=== PATIENT | female | born 1940 | race Two or more races ===

== ENCOUNTER 2023-01-23 13:37 | Inpatient (IN) | payer OTHER ==
[~2023-01-23] VITALS: Ht 162.6 cm; Wt 80.3 kg
[2023-01-23] MEDS ORDERED: SODIUM CHLORIDE 0.9% 1,000 ML IV ONE ×2 (14:30→19:00)
[2023-01-23] MEDS ORDERED: ONDANSETRON ODT 4 MG TAB PO ONE (14:30)
[2023-01-23] MEDS ORDERED: MAALOX PLUS or MAALOX 30 ML PO ONE (14:30)
[2023-01-23] MEDS ORDERED: MECLIZINE HCL 25 MG TAB PO ONE (14:30)
[2023-01-23 14:40] VITALS: PULSE 65; RESP 16; O2SAT 99
[2023-01-23 15:09] LABS: Basophils # (auto) 0.1 10 ^3/uL (0-0.2); Basophils % (auto) 0.4 % (0.0-2.0); Eosinophils # (auto) 0.1 10 ^3/uL (0-0.8); Eosinophils % (auto) 0.5 % (0.0-7.0); Hematocrit 40.5 % (36.0-46.0); Hemoglobin 13.7 g/dL (12.2-16.2); Lymphocytes # (auto) 1.2 10 ^3/uL (0.4-5.4); Lymphocytes % (auto) 7.7 % (10.0-50.0); Mean Corpuscular Hemoglobin 29.2 pg (28.0-32.0); Mean Corpuscular Hgb Conc. 33.9 g/dL (32.0-36.0); Mean Corpuscular Volume 86.3 fL (80.0-100.0); Monocytes # (auto) 0.8 10 ^3/uL (0-1.3); Monocytes % (auto) 4.9 % (0.0-12.0); Neutrophils # (auto) 13.7 10 ^3/uL (1.6-8.6); Neutrophils % (auto) 86.5 % (37.0-80.0); Red Blood Cells 4.69 10^6/uL (4.0-5.20); Red Cell Distribution Width 12.8 % (11.8-14.3); White Blood Cell 15.8 10^3/uL (4.4-10.8)
[2023-01-23 15:17] LABS: Albumin 3.5 g/dL (3.4-5.0); Potassium 3.5 mmol/L (3.5-5.1)
[2023-01-23 15:19] LABS: Bilirubin, Total 0.4 mg/dL (0.2-1.0); Total Protein 6.9 g/dL (6.4-8.2)
[2023-01-23] MEDS ORDERED: LIDOCAINE VISCOUS 2% 15ML UD PO ONE (15:45)
[2023-01-23] MEDS ORDERED: METOCLOPRAMIDE HCL 5MG/ml INJ 2ml VIAL IV ONE (15:45)
[2023-01-23] MEDS ORDERED: DONNATAL 5ml ORAL Elix (BELLADONNA ALK-PHENOBARB) PO ONE (15:45)
[2023-01-23 20:20] VITALS: PULSE 54; RESP 15; O2SAT 97
[2023-01-23 21:35] LABS: Urine Bacteria NONE SEEN /hpf (None Seen); Urine Blood Negative /uL (Negative); Urine Clarity Clear (Clear); Urine Color Yellow (Yellow); Urine Hyaline Cast FEW /lpf (0 - 2); Urine Mucus FEW (None Seen); Urine Protein, UAD TRACE (Negative); Urine Specific Gravity 1.016 (1.001-1.035); Urine Urobilinogen Normal (Negative); Urine WBC 2 /hpf (0 - 5)
[2023-01-23] MEDS ORDERED: MECLIZINE HCL 25 MG TAB PO PRN (21:45)
[2023-01-23] MEDS ORDERED: ONDANSETRON HCL 4 MG/2 ML VIAL IV PRN (21:45)
[2023-01-23] MEDS ORDERED: cefTRIAXone 1GM/50ML D5W 50 ML IV ONE (21:45)
[2023-01-23] MEDS ORDERED: ACETAMINOPHEN 325 MG TAB PO PRN (21:45)
[2023-01-23 21:51] LABS: Alcohol, Urine < 3.0 mg/dL (0-10); Amphetamine Screen, Urine NEGATIVE (NEGATIVE); Barbiturate Scree,Urine NEGATIVE (NEGATIVE); Benzodiazephine Screen, Urine NEGATIVE (NEGATIVE); Cannabinoid Screen, Urine NEGATIVE (NEGATIVE); Cocaine Screen, Urine NEGATIVE (NEGATIVE); Opiate Scree,Urine NEGATIVE (NEGATIVE); Phencyclidine Screen, Urine NEGATIVE (NEGATIVE)
[2023-01-23] MEDS: SODIUM CHLORIDE 0.9% 1,000 ML IV SCH (22:01)
[2023-01-23] MEDS ORDERED: MORPHINE SULFATE INJ 2 MG/ml SYRG IV PRN (23:45)
[2023-01-23] MEDS ORDERED: NITROGLYCERIN 0.4 MG SL TAB SL PRN (23:45)
[2023-01-24] VITALS (7 sets, daily range): BP systolic 127–158; BP diastolic 50–75; PULSE 57–87; RESP 14–18; TEMP 97.4–98.7; O2SAT 93–98
[2023-01-24 02:04] LABS: Basophils # (auto) 0 10 ^3/uL (0-0.2); Basophils % (auto) 0.2 % (0.0-2.0); Eosinophils # (auto) 0 10 ^3/uL (0-0.8); Eosinophils % (auto) 0.1 % (0.0-7.0); Hematocrit 37.3 % (36.0-46.0); Hemoglobin 12.5 g/dL (12.2-16.2); Lymphocytes # (auto) 1.1 10 ^3/uL (0.4-5.4); Lymphocytes % (auto) 9.7 % (10.0-50.0); Mean Corpuscular Hemoglobin 29.3 pg (28.0-32.0); Mean Corpuscular Hgb Conc. 33.5 g/dL (32.0-36.0); Mean Corpuscular Volume 87.6 fL (80.0-100.0); Monocytes # (auto) 0.6 10 ^3/uL (0-1.3); Monocytes % (auto) 4.8 % (0.0-12.0); Neutrophils # (auto) 9.9 10 ^3/uL (1.6-8.6); Neutrophils % (auto) 85.2 % (37.0-80.0); Red Blood Cells 4.25 10^6/uL (4.0-5.20); Red Cell Distribution Width 12.7 % (11.8-14.3); White Blood Cell 11.7 10^3/uL (4.4-10.8)
[2023-01-24 02:05] LABS: Urine Bacteria MOD /hpf (None Seen); Urine Blood 3+ /uL (Negative); Urine Clarity HAZY (Clear); Urine Color PINK (Yellow); Urine Mucus FEW (None Seen); Urine Protein, UAD 2+ (Negative); Urine Urobilinogen Normal (Negative); Urine WBC 411 /hpf (0 - 5); Urine pH 6.5 (5.0-8.0)
[2023-01-24 03:54] LABS: Albumin 3.1 g/dL (3.4-5.0); Calcium 8.1 mg/dL (8.5-10.1); Potassium 3.6 mmol/L (3.5-5.1)
[2023-01-24 03:57] LABS: BUN/Creatinine Ratio 14.5 (10.0-20.0); Bilirubin, Total 0.3 mg/dL (0.2-1.0); Total Protein 6.2 g/dL (6.4-8.2)
[2023-01-24] MEDS: HYDROcodone-ACET 5/325MG TAB PO PRN ×4 (04:43→20:51)
[2023-01-24] MEDS: LEVOTHYROXINE SODIUM 25 MCG TAB PO SCH (06:39)
[2023-01-24] MEDS ORDERED: ASPirin 81 mg TAB PO SCH (10:00)
[2023-01-24] MEDS ORDERED: FAMOTIDINE (10MG/ML) 2ML VL IV SCH (10:00)
[2023-01-24] MEDS ORDERED: POTA10TA51 PO (16:13)
[2023-01-24] MEDS ORDERED: ASPI-543 PO (16:13)
[2023-01-24] MEDS ORDERED: LEVO50TA7 PO (16:13)
[2023-01-24] MEDS ORDERED: OMEP20TA PO (16:13)
[2023-01-24] MEDS ORDERED: AMLO1TAB22 PO (16:13)
[2023-01-24] MEDS ORDERED: LISI40TA16 PO (16:13)
[2023-01-24 17:31] LABS: Cholesterol 202 mg/dL (< 200)
[2023-01-24 17:35] LABS: HDL Cholesterol 67 mg/dL (40-59); LDL Cholesterol 118 mg/dL (< 100); Triglycerides 82 mg/dL (< 150)
[2023-01-24] MEDS: SODIUM CHLORIDE 0.9% 1,000 ML IV SCH (18:03)
[2023-01-24] MEDS: cefTRIAXone 1GM/50ML D5W 50 ML IV SCH (21:15)
[2023-01-24] MEDS: PANTOPRAZOLE 40 MG/10 ML VIAL INJ IV SCH (21:15)
[2023-01-24] MEDS ORDERED: ONDANSETRON HCL 4 MG/2 ML VIAL IV PRN (23:15)
[2023-01-25] VITALS (8 sets, daily range): BP systolic 128–162; BP diastolic 42–63; PULSE 56–68; RESP 16–18; TEMP 97.6–98.6; O2SAT 94–99
[2023-01-25] MEDS: HYDROcodone-ACET 5/325MG TAB PO PRN ×2 (01:48→18:12)
[2023-01-25] MEDS: SODIUM CHLORIDE 0.9% 1,000 ML IV SCH ×2 (04:11→21:04)
[2023-01-25] MEDS: SUCRALFATE 1 GM/10 ML ORAL SUSP PO SCH ×4 (06:15→21:04)
[2023-01-25] MEDS: LEVOTHYROXINE SODIUM 25 MCG TAB PO SCH (06:16)
[2023-01-25 10:05] LABS: Hepatitis B Surface Antibody Negative (Negative)
[2023-01-25 10:29] LABS: Hepatitis A Total Antibody Positive (Negative)
[2023-01-25] MEDS: PANTOPRAZOLE 40 MG/10 ML VIAL INJ IV SCH ×2 (10:54→21:04)
[2023-01-25] MEDS: LIDOCAINE 5% TOPICAL PATCH TOP SCH (10:54)
[2023-01-25 13:16] LABS: Hepatitis B Core Total AB Negative (Negative); Hepatitis B Surface Antigen Negative (Negative); Hepatitis C Antibody Negative (Negative)
[2023-01-25 14:40] LABS: Urine Bacteria NONE SEEN /hpf (None Seen); Urine Blood Negative /uL (Negative); Urine Clarity Clear (Clear); Urine Color Colorless (Yellow); Urine Protein, UAD Negative (Negative); Urine Specific Gravity 1.007 (1.001-1.035); Urine Urobilinogen Normal (Negative); Urine WBC 2 /hpf (0 - 5); Urine pH 6.5 (5.0-8.0)
[2023-01-25] MEDS: cefTRIAXone 1GM/50ML D5W 50 ML IV SCH (21:04)
[2023-01-26] VITALS (10 sets, daily range): BP systolic 134–181; BP diastolic 43–78; PULSE 39–67; RESP 11–21; TEMP 97.7–98.1; O2SAT 95–98
[2023-01-26] MEDS: HYDROcodone-ACET 5/325MG TAB PO PRN ×2 (03:42→22:50)
[2023-01-26 05:10] LABS: Basophils # (auto) 0.1 10 ^3/uL (0-0.2); Basophils % (auto) 0.6 % (0.0-2.0); Eosinophils # (auto) 0.1 10 ^3/uL (0-0.8); Eosinophils % (auto) 1.4 % (0.0-7.0); Hematocrit 33.7 % (36.0-46.0); Hemoglobin 11.6 g/dL (12.2-16.2); Lymphocytes # (auto) 1.3 10 ^3/uL (0.4-5.4); Mean Corpuscular Hemoglobin 29.6 pg (28.0-32.0); Mean Corpuscular Hgb Conc. 34.5 g/dL (32.0-36.0); Mean Corpuscular Volume 85.8 fL (80.0-100.0); Monocytes # (auto) 0.5 10 ^3/uL (0-1.3); Neutrophils # (auto) 7.3 10 ^3/uL (1.6-8.6); Nucleated Red Blood Cells % 0.1 %; Red Blood Cells 3.93 10^6/uL (4.0-5.20); Red Cell Distribution Width 12.7 % (11.8-14.3); White Blood Cell 9.3 10^3/uL (4.4-10.8)
[2023-01-26 05:38] LABS: Albumin 2.9 g/dL (3.4-5.0); Calcium 8.3 mg/dL (8.7-10.4); Potassium 3.6 mmol/L (3.5-5.1)
[2023-01-26 05:41] LABS: BUN/Creatinine Ratio 8.3 (10.0-20.0)
[2023-01-26 05:54] LABS: Bilirubin, Total 0.3 mg/dL (0.2-1.0); Total Protein 5.6 g/dL (6.4-8.2)
[2023-01-26] MEDS: SUCRALFATE 1 GM/10 ML ORAL SUSP PO SCH ×4 (06:19→22:49)
[2023-01-26] MEDS: LEVOTHYROXINE SODIUM 25 MCG TAB PO SCH (06:19)
[2023-01-26] MEDS: PANTOPRAZOLE 40 MG/10 ML VIAL INJ IV SCH ×2 (08:40→22:49)
[2023-01-26] MEDS: LIDOCAINE 5% TOPICAL PATCH TOP SCH (08:40)
[2023-01-26] MEDS ORDERED: LIDOCAINE VISCOUS 2% 15ML UD ONE (09:36)
[2023-01-26] MEDS ORDERED: SODIUM CHLORIDE LOCK 10 ML ONE (09:36)
[2023-01-26] MEDS: fentaNYL CITRATE 100 MCG/2 ML VL ONE ×2 (11:37→11:41)
[2023-01-26] MEDS: diphenhdrAMINE HCL 50 MG/1 ML VL ONE ×2 (11:37→11:39)
[2023-01-26] MEDS: MIDAZOLAM HCL 5 MG/ML-1ML VIAL ONE ×2 (11:37→11:42)
[2023-01-26] MEDS: SODIUM CHLORIDE 0.9% 1,000 ML IV SCH (18:28)
[2023-01-26] MEDS: DOCUSATE SOD 100 MG CAP PO PRN (22:50)
[2023-01-26] MEDS: cefTRIAXone 1GM/50ML D5W 50 ML IV SCH (22:55)
[2023-01-27 04:53] VITALS: BP_SYST 155; BP_SYST 161; BP_SYST 165; BP_DIAS 63; BP_DIAS 64; BP_DIAS 70; PULSE 80; RESP 20; TEMP 97.4; O2SAT 95
[2023-01-27] MEDS ORDERED: cloNIDine HCL 0.1 MG TAB PO ONE (05:30)
[2023-01-27] MEDS: SUCRALFATE 1 GM/10 ML ORAL SUSP PO SCH ×2 (06:09→12:21)
[2023-01-27] MEDS: LEVOTHYROXINE SODIUM 25 MCG TAB PO SCH (06:14)
[2023-01-27 08:00] VITALS: PULSE 49
[2023-01-27 08:02] VITALS: O2SAT 96
[2023-01-27 08:59] VITALS: BP 135/62; PULSE 58; RESP 16; TEMP 98.1; O2SAT 98
[2023-01-27 09:00] VITALS: BP_SYST 127; BP_SYST 137; BP_DIAS 59; BP_DIAS 66
[2023-01-27] MEDS: DOCUSATE SOD 100 MG CAP PO PRN (09:39)
[2023-01-27] MEDS: PANTOPRAZOLE 40 MG/10 ML VIAL INJ IV SCH (09:39)
[2023-01-27] MEDS: LIDOCAINE 5% TOPICAL PATCH TOP SCH (09:39)
[2023-01-27] MEDS ORDERED: amLODIPine BESYLATE 5 MG TAB PO ONE (11:30)
[2023-01-27] MEDS ORDERED: LISINOPRIL 20 MG TAB PO ONE (11:30)
[2023-01-27 13:00] VITALS: BP_SYST 145; BP_SYST 146; BP_SYST 147; BP_DIAS 63; BP_DIAS 64; BP_DIAS 66; PULSE 55; RESP 16; TEMP 97.9; O2SAT 97
== END 2023-01-27 14:30 | disposition home or self-care (01) | DRG 391 ==
LOC: EDBD 13:37 → ER 13:37 → TELE 23:41 → TELE-CENTR 01-24 08:58
PROVIDERS: ADMIT Nurse Practitioner Family; ATTEND Internal Medicine Geriatric Medicine
PROC: 0DB68ZX Excision of Stomach, Via Natural or Artificial Opening Endoscopic, Diagnostic (ICD-10-PCS; 2023-01-26)
PROC: 0DB48ZX Excision of Esophagogastric Junction, Via Natural or Artificial Opening Endoscopic, Diagnostic (ICD-10-PCS; 2023-01-26)
PROC: 0DB98ZX Excision of Duodenum, Via Natural or Artificial Opening Endoscopic, Diagnostic (ICD-10-PCS; principal; 2023-01-26 11:32)
DX: K21.9 Gastro-esophageal reflux disease without esophagitis (principal); K22.11 Ulcer of esophagus with bleeding; E87.1 Hypo-osmolality and hyponatremia; N39.0 Urinary tract infection, site not specified; K29.70 Gastritis, unspecified, without bleeding; R55 Syncope and collapse; E03.9 Hypothyroidism, unspecified; I10 Essential (primary) hypertension; E66.9 Obesity, unspecified; E78.5 Hyperlipidemia, unspecified; K44.9 Diaphragmatic hernia without obstruction or gangrene; Z79.899 Other long term (current) drug therapy; Z82.0 Family history of epilepsy and other diseases of the nervous system; Z82.49 Family history of ischemic heart disease and other diseases of the circulatory system; Z83.3 Family history of diabetes mellitus; Z68.30 Body mass index [BMI] 30.0-30.9, adult
CPT/HCPCS: 36415; 43239; 70450; 70551; 74176; 80053; 80061; 80307; 81001; 83036; 83605; 83690; 83735; 83880; 84443; 84484; 85025; 86704; 86706; 86708; 86803; 87040; 87086; 87340; 93005; 93306; 93886; 96361; 96374; C9113; G0378; J0696; J2250; J3490